=== PATIENT | male | born 1985 | race Caucasian/White ===

== ENCOUNTER 2019-02-11 18:21 | Outpatient (CLI) | payer OTHER ==
--- NOTE | 2019-02-12 11:35 | MRI Report ---
Reason: OTHER INSTABILITY, UNSPECIFIED KNEE Procedure Date: 02/11/2019 Accession Number: [id number] / [id number] Procedure: MRI - Knee RT W/O CPT Code: FULL RESULT: EXAM: RIGHT KNEE MRI WITHOUT CONTRAST EXAM DATE: 02/11/2019 08:36 PM. CLINICAL HISTORY: Right knee pain, no history of trauma.. COMPARISON: None. TECHNIQUE: Multiplanar, multisequence T1-weighted and fluid-sensitive sequences of the knee without contrast. Other: None. FINDINGS: Bones: No fractures or subluxations. No marrow edema. No bone lesions. Articular Cartilage: Unremarkable. Medial Meniscus: The medial meniscus is intact. Lateral Meniscus: The lateral meniscus is intact. Cruciate Ligaments: The anterior and posterior cruciate ligaments are intact. Collateral Ligaments: The medial collateral and lateral collateral ligamentous structures are intact. Tendons: The quadriceps, patellar, semimembranosus, and popliteus tendons are unremarkable. Musculature: No edema or fatty atrophy. Other: No effusion. No popliteal cyst. No loose bodies. The medial and lateral retinacula are intact. The subcutaneous tissues and fat pads are unremarkable. IMPRESSION: No MRI abnormalities in the knee. [facility]
== END 2019-02-11 18:22 | disposition home or self-care (01) ==
LOC: DI 18:21
PROVIDERS: ATTEND Student in an Organized Health Care Education/Training Program
DX: M25.361 Other instability, right knee (principal)